=== PATIENT | male | born 1975 | race Caucasian/White ===

== ENCOUNTER 2017-07-10 15:48 | Emergency (ER) | payer MEDICAID ==
--- NOTE | 2017-07-10 16:12 | EDPHY ---
General Time Seen by Provider: 07/10/17 16:06 Narrative: CHIEF COMPLAINT: Ft infection, nose infection HISTORY OF PRESENT ILLNESS: Patient complains of "my feet are infected and my nose is infected." He says he has had infection in both areas for 2-3 weeks. It is painful to him, 11/21. He says that he also feel sick. He is currently homeless but says he has shower recently. He has not attempted any medications for this. He reports that he has had several "skin infections" in the past. He has been diagnosed with MRSA. He denies any chest pain or shortness of breath. No cough or fever. No headache or stiffness. No trauma or injury. No other associated complaints or modifying factors. REVIEW OF SYSTEMS: Ten systems reviewed and are negative unless otherwise noted in the HPI PCP: No regular physician SPECIALISTS: None PAST MEDICAL HISTORY: MRSA infections, obesity PAST SURGICAL HISTORY: Gastric sleeve SOCIAL HISTORY: Smoker of cigarettes. Occasional alcohol. Denies drug use. Currently homeless. Attempting To find employment FAMILY HISTORY: noncontributory EXAMINATION General Appearance: Alert, no distress. Unkempt. Head: normocephalic, atraumatic Eyes: Pupils equal and round, no conjunctival pallor or injection ENT, Mouth: Mucous membranes moist Neck: Normal inspection, supple, non-tender Respiratory: Mild scattered rhonchi. No wheezing. No crackles or diminishment. Cardiovascular: Tachycardic rate. Regular rhythm. No murmur Gastrointestinal: Abdomen is soft and nontender Back: non-tender, no bony abnormalities Neurological: GCS 15. A&O, nonfocal, normal gait Skin: Unclean skin. Warm and dry. There are cracks to the plantar surface of both feet with no signs of cellulitis or infection there. There are 2 areas of ulceration on the nose that appears secondarily infected. The multiple areas of excoriations about the arms and legs that do not appear to be infected. Extremities: Nontender, no pedal edema. Symmetric range of motion. Psychiatric: Mood and affect normal DIFFERENTIAL DIAGNOSES: Including but not limited to cellulitis, abscess, MRSA, ulceration pneumonia, sepsis MDM: 4:15 p.m. Cellulitis of the nose with mild ulceration and history of MRSA as well as pain and possible infection on the plantar surface of the right foot. He does have tachycardia but he does not meet any other SIRS criteria. The patient is homeless and has a very poor hygiene. I have ordered blood cultures and lactic acid, IV fluid and IV vancomycin. We will check all sources to rule out sepsis , although I think this is highly unlikely. 4:45 p.m. Lactic acid is slightly elevated 2.6. There is no leukocytosis. He will be treated with IV fluid as I feel this is likely due to dehydration. Patient be evaluated by Dr. Quintanilla 6:10 p.m. Patient evaluated by Dr. Quintanilla. His laboratory studies within normal limits. He does agree with outpatient management of his possible infection. There is no pneumonia on chest x-ray. Vital signs have significantly improved with 2 L IV fluid. He is in no acute distress and discharged in stable condition with Bactrim and Keflex as well as topical Bactroban. We discussed ED precautions, [facility]. He verbalizes understanding of this. SUPERVISION: Patient was evaluated and examined in conjunction with my secondary supervising physician as documented. We have both examined the patient. - History Smoking Status: Former smoker - Objective Vital Signs: Initial Vital Signs Temperature (C) 98.1 F 07/10/17 15:55 Heart Rate 129 H 07/10/17 15:55 Respiratory Rate 18 07/10/17 15:55 Blood Pressure 139/86 H 07/10/17 15:55 O2 Sat (%) 94 07/10/17 15:55 O2 Delivery Mode Room Air Allergies/Adverse Reactions: No Known Allergies Allergy (Unverified 07/10/17 16:00) Home Medications: Medication Instructions Recorded Cephalexin [Keflex (*)] 500 mg PO TID #30 cap 07/10/17 Naproxen [Naprosyn] 500 mg PO BID #20 tablet 07/10/17 Sulfamethox/Tmp 800/160 mg 2 tab PO BID 10 Days tab 07/10/17 [Bactrim Ds] Laboratory Results: Laboratory Results 07/10/17 16:35 07/10/17 16:35 Medications Given: Discontinued Medications Sodium Chloride (Ns) 1,000 mls @ 0 mls/hr IV EDNOW ONE; Wide Open PRN Reason: Protocol Stop: 07/10/17 16:25 Last Admin: 07/10/17 16:33 Dose: 1,000 mls Vancomycin/Sodium Chloride (Vancomycin 1 Gm (Premix)) 250 mls @ 250 mls/hr IV EDNOW ONE PRN Reason: Protocol Stop: 07/10/17 17:23 Last Admin: 07/10/17 16:57 Dose: 250 mls Sodium Chloride (Ns) 1,000 mls @ 0 mls/hr IV EDNOW ONE; Wide Open PRN Reason: Protocol Stop: 07/10/17 17:06 Last Admin: 07/10/17 17:19 Dose: 1,000 mls Ibuprofen (Motrin) 800 mg PO EDNOW ONE Stop: 07/10/17 17:52 Last Admin: 07/10/17 17:53 Dose: 800 mg Mupirocin (Bactroban 2%) 1 ga TP TID BERE Stop: 08/09/17 21:59 Last Admin: 07/10/17 17:20 Dose: 1 ga Departure - Departure Disposition: Home, Routine, Self-Care Clinical Impression: Nose ulceration, Foot infection Condition: Good Instructions: MRSA (Methicillin-Resistant Staphylococcus Aureus) (ED) Additional Instructions: 1. Bactrim 2 pills by mouth twice daily 1st dose tonight 2. Keflex 1 pill by mouth 4 times daily 1st dose tonight 3. Bactroban, thin layer applied to the affected area on the nose 3 times daily for 10-14 days 4. Contact the on-call primary care physicians as provided for outpatient care 5. ED precautions as discussed Referrals: Julisa Manzanares DO [Doctor of Osteopathy] - As per Instructions Prescriptions: Cephalexin [Keflex (*)] 500 mg PO TID #30 cap Naproxen [Naprosyn] 500 mg PO BID #20 tablet Sulfamethox/Tmp 800/160 mg [Bactrim Ds] 2 tab PO BID 10 Days tab
[2017-07-10] MEDS ORDERED: NS 1,000 ML IV ONE ×2 (16:24→17:05)
[2017-07-10] MEDS ORDERED: VANCOMYCIN HCL/NORMAL SALINE 250 ML IV ONE (16:24)
[2017-07-10 16:48] LABS: PLATELET COUNT 274 10^3/uL (150-400)
[2017-07-10 17:15] LABS: INR 0.99 (0.83-1.16); PROTIME(PATIENT) 13.3 SEC (12.0-15.0)
[2017-07-10] MEDS ORDERED: IBUPROFEN 800 MG TAB PO ONE (17:51)
[2017-07-10 18:13] VITALS: BP 140/85
[2017-07-10] MEDS ORDERED: MUPIROCIN 2% 22 GM OINT TP SCH (22:00)
== END 2017-07-10 18:19 | disposition home or self-care (01) ==
DX: L08.9 Local infection of the skin and subcutaneous tissue, unspecified (principal); J34.0 Abscess, furuncle and carbuncle of nose; E86.9 Volume depletion, unspecified; F17.210 Nicotine dependence, cigarettes, uncomplicated
CPT/HCPCS: 96365; J3370